=== PATIENT | male | born 1975 | race Caucasian/White ===

== ENCOUNTER 2016-12-28 10:31 | Emergency (ER) | payer BC ==
[~2016-12-28] VITALS: Ht 180.3 cm; Wt 120.4 kg
[2016-12-28 12:13] LABS: HEMATOCRIT 45.1 % (39.2-51.8); HEMOGLOBIN 15.4 g/dL (13.7-18.0); WHITE BLOOD COUNT 8.4 x10^3/uL (3.4-10)
[2016-12-28 12:25] LABS: BLOOD UREA NITROGEN 14 mg/dL (7-18)
[2016-12-28 12:30] LABS: ASPARTATE AMINO TRANSFERASE 41 U/L (15-37)
[2016-12-28 12:31] LABS: IS PT STATUS REG ER OR PRE ER? YES
[2016-12-28 13:15] VITALS: BP 134/90
== END 2016-12-28 14:00 | disposition home or self-care (01) ==
LOC: ED 11:16
DX: F41.9 Anxiety disorder, unspecified (principal); R06.4 Hyperventilation; I10 Essential (primary) hypertension
CPT/HCPCS: 36415; 71010; 80053; 84484; 85025; 93005; 99285

== ENCOUNTER 2017-01-07 14:33 | Emergency (ER) | payer BC ==
[~2017-01-07] VITALS: Ht 180.3 cm; Wt 121.8 kg
[2017-01-07] MEDS ORDERED: LORA1TAB PO (15:09)
[2017-01-07] MEDS ORDERED: SERT50TA5 PO (15:09)
[2017-01-07] MEDS ORDERED: METO-93 PO (15:09)
[2017-01-07 15:33] LABS: HEMATOCRIT 47.6 % (39.2-51.8); HEMOGLOBIN 16.4 g/dL (13.7-18.0); WHITE BLOOD COUNT 8.9 x10^3/uL (3.4-10)
[2017-01-07 15:40] LABS: BLOOD UREA NITROGEN 16 mg/dL (7-18)
[2017-01-07 15:45] LABS: IS PT STATUS REG ER OR PRE ER? YES
[2017-01-07 16:32] VITALS: BP 127/84
== END 2017-01-07 16:34 | disposition home or self-care (01) ==
LOC: ED 15:35
DX: F41.1 Generalized anxiety disorder (principal); R06.4 Hyperventilation; R07.89 Other chest pain; I10 Essential (primary) hypertension; Z87.891 Personal history of nicotine dependence
CPT/HCPCS: 36415; 71010; 80048; 82040; 84484; 85025; 93005; 99285

== ENCOUNTER 2017-01-12 17:56 | Emergency (ER) | payer BC ==
[~2017-01-12] VITALS: Ht 180.3 cm; Wt 118.6 kg
[~2017-01-12 17:56] MED LIST: LORA1TAB PO; METO-93 PO; SERT50TA5 PO
[2017-01-12 17:59] VITALS: BP 152/83
== END 2017-01-12 19:04 | disposition home or self-care (01) ==
LOC: ED 18:51
DX: S20.362A Insect bite (nonvenomous) of left front wall of thorax, initial encounter (principal); W57.XXXA Bitten or stung by nonvenomous insect and other nonvenomous arthropods, initial encounter; Y93.89 Activity, other specified; Y92.89 Other specified places as the place of occurrence of the external cause; Y99.8 Other external cause status; I10 Essential (primary) hypertension
CPT/HCPCS: 99283

== ENCOUNTER 2017-01-20 21:58 | Emergency (ER) | payer BC, OTHER ==
[~2017-01-20] VITALS: Ht 180.3 cm; Wt 118.3 kg
[2017-01-20 23:58] LABS: HEMATOCRIT 45.2 % (39.2-51.8); HEMOGLOBIN 15.5 g/dL (13.7-18.0); WHITE BLOOD COUNT 8.1 x10^3/uL (3.4-10)
[2017-01-21 00:01] LABS: BLOOD UREA NITROGEN 26 mg/dL (7-18)
[2017-01-21 00:04] LABS: ASPARTATE AMINO TRANSFERASE 53 U/L (15-37)
[2017-01-21 02:49] VITALS: BP 119/82
== END 2017-01-21 02:51 | disposition home or self-care (01) ==
LOC: ED 23:57
DX: R10.12 Left upper quadrant pain (principal); I10 Essential (primary) hypertension
CPT/HCPCS: 36415; 76700; 80053; 81001; 83690; 85025; 93005; 99285

== ENCOUNTER 2017-01-31 19:51 | Emergency (ER) | payer SELFPAY ==
[~2017-01-31] VITALS: Ht 180.3 cm; Wt 117.7 kg
[2017-01-31 20:08] VITALS: BP 154/75
== END 2017-01-31 20:58 | disposition home or self-care (01) ==
LOC: ED 20:52
DX: M54.6 Pain in thoracic spine (principal); F41.1 Generalized anxiety disorder; I10 Essential (primary) hypertension
CPT/HCPCS: 72072; 93005; 99284

== ENCOUNTER 2017-03-21 09:09 | Emergency (ER) | payer SELFPAY ==
[~2017-03-21] VITALS: Ht 180.3 cm; Wt 114.2 kg
[2017-03-21 09:50] VITALS: BP 125/79
== END 2017-03-21 09:52 | disposition home or self-care (01) ==
LOC: ED 09:40
DX: F41.1 Generalized anxiety disorder (principal); I10 Essential (primary) hypertension
CPT/HCPCS: 93005; 99283

== ENCOUNTER 2017-04-29 04:38 | Emergency (ER) | payer SELFPAY ==
[~2017-04-29] VITALS: Ht 180.3 cm; Wt 113.0 kg
[2017-04-29 04:41] VITALS: BP 124/86
== END 2017-04-29 06:03 | disposition home or self-care (01) ==
LOC: ED 05:26
DX: R06.00 Dyspnea, unspecified (principal); I10 Essential (primary) hypertension; G47.33 Obstructive sleep apnea (adult) (pediatric)
CPT/HCPCS: 71045; 93005; 99284

== ENCOUNTER 2017-12-19 17:40 | Emergency (ER) | payer OTHER ==
[~2017-12-19] VITALS: Ht 180.3 cm; Wt 119.7 kg
[2017-12-19] MEDS ORDERED: ASPIRIN 81 MG TABLET CHEW PO ONE (18:00)
[2017-12-19] MEDS ORDERED: ASPIRIN 81 MG TABLET CHEW ONE (18:02)
[2017-12-19] MEDS ORDERED: NAPR220C2 PO (18:14)
[2017-12-19] MEDS ORDERED: MECL25TA4 PO (18:15)
[2017-12-19 18:21] LABS: BASOPHILS # (AUTO) 0.05 x10^3/uL (0-0.1); BASOPHILS % (AUTO) 1 % (0-1); EOSINOPHILS # (AUTO) 0.17 x10^3/uL (0-0.4); EOSINOPHILS % (AUTO) 2 % (1-7); LYMPHOCYTES # (AUTO) 2.43 x10^3/uL (1-3.4); LYMPHOCYTES % (AUTO) 29 % (22-44); MD NO; MEAN CORPUSCULAR HEMOGLOBIN 30.6 pg (27.5-34.5); MEAN CORPUSCULAR HGB CONC 34.1 g/dL (33.2-36.2); MEAN CORPUSCULAR VOLUME 89.6 fL (81-97); MEAN PLATELET VOLUME 8.7 fL (7.4-10.4); MONOCYTES # (AUTO) 0.64 x10^3/uL (0.2-0.8); MONOCYTES % (AUTO) 8 % (2-9); NEUTROPHILS # (AUTO) 5.14 x10^3/uL (1.8-6.8); NEUTROPHILS % (AUTO) 61 % (42-75); PLATELET COUNT 244 x10^3/uL (130-400); RED BLOOD COUNT 5.19 x10^6/uL (4.38-5.82); RED CELL DISTRIBUTION WIDTH 13.2 % (9.4-14.8)
[2017-12-19 18:35] LABS: ALANINE AMINOTRANSFERASE 118 U/L (12-78); ALBUMIN 3.9 g/dL (3.4-5.0); ANION GAP 6 mmol/L (5-15); CALCIUM 9.2 mg/dL (8.5-10.1); CHLORIDE 107 mmol/L (98-107); CREATININE 1.19 mg/dL (0.7-1.3)
[2017-12-19 18:39] LABS: ALKALINE PHOSPHATASE 71 U/L (45-117); BILIRUBIN,TOTAL 0.7 mg/dL (0.2-1.0); TOTAL PROTEIN 7.9 g/dL (6.4-8.2); TROPONIN I < 0.015 ng/mL (0.000-0.045)
[2017-12-19 18:40] LABS: MICROSCOPIC NOT IND
[2017-12-19 20:23] VITALS: BP 131/75
== END 2017-12-19 20:38 | disposition home or self-care (01) ==
LOC: ED 19:08
DX: K43.9 Ventral hernia without obstruction or gangrene (principal); I10 Essential (primary) hypertension; M54.9 Dorsalgia, unspecified; R07.9 Chest pain, unspecified; Z91.14 Patient's other noncompliance with medication regimen
CPT/HCPCS: 36415; 71045; 74176; 80053; 81003; 83690; 84484; 85025; 93005; 99285

== ENCOUNTER 2018-06-21 21:44 | Emergency (ER) | payer SELFPAY ==
[~2018-06-21] VITALS: Ht 180.3 cm; Wt 123.7 kg
[~2018-06-21 21:44] MED LIST changes: +MECL25TA4 PO; +NAPR220C2 PO; +SERT50TA28 PO; -SERT50TA5 PO
[2018-06-21 21:53] VITALS: BP 144/98
--- NOTE | 2018-06-21 23:24 | NUR ---
NOT IN LOBBY FOR VITAL RECHECK
--- NOTE | 2018-06-22 00:09 | NUR ---
NO ANSWER TIMES 2
--- NOTE | 2018-06-22 00:29 | NUR ---
NO ANSWER WHEN CALLED, THIRD TIME, LOBBY CHECKED, PT NOT FOUND
== END 2018-06-22 00:32 | disposition left against medical advice (07) ==
LOC: ED 06-22 00:26
DX: R51 Headache (principal); Z53.21 Procedure and treatment not carried out due to patient leaving prior to being seen by health care provider

== ENCOUNTER 2018-10-27 12:51 | Emergency (ER) | payer BC ==
[~2018-10-27] VITALS: Ht 180.3 cm; Wt 124.3 kg
--- NOTE | 2018-10-27 12:55 | NUR ---
NO ANSWER FROM TRIAGE AT THIS TIME
[2018-10-27 13:39] LABS: BASOPHILS # (AUTO) 0.05 x10^3/uL (0-0.1); BASOPHILS % (AUTO) 1 % (0-1); EOSINOPHILS # (AUTO) 0.19 x10^3/uL (0-0.4); EOSINOPHILS % (AUTO) 2 % (1-7); LYMPHOCYTES # (AUTO) 1.54 x10^3/uL (1-3.4); LYMPHOCYTES % (AUTO) 19 % (22-44); MD NO; MEAN CORPUSCULAR HEMOGLOBIN 29.9 pg (27.5-34.5); MEAN CORPUSCULAR HGB CONC 33.3 g/dL (33.2-36.2); MEAN CORPUSCULAR VOLUME 89.9 fL (81-97); MEAN PLATELET VOLUME 8.3 fL (7.4-10.4); MONOCYTES # (AUTO) 0.63 x10^3/uL (0.2-0.8); MONOCYTES % (AUTO) 8 % (2-9); NEUTROPHILS # (AUTO) 5.78 x10^3/uL (1.8-6.8); NEUTROPHILS % (AUTO) 71 % (42-75); PLATELET COUNT 257 x10^3/uL (130-400); RED BLOOD COUNT 5.18 x10^6/uL (4.38-5.82); RED CELL DISTRIBUTION WIDTH 13.4 % (9.4-14.8)
[2018-10-27 13:49] LABS: ALBUMIN 3.7 g/dL (3.4-5.0); ANION GAP 6 mmol/L (5-15); CALCIUM 8.8 mg/dL (8.5-10.1); CHLORIDE 112 mmol/L (98-107); CREATININE 1.19 mg/dL (0.7-1.3)
--- NOTE | 2018-10-27 13:58 | NUR ---
FROM LOBBY TO ROOM AT THIS TIME
--- NOTE | 2018-10-27 14:00 | NUR ---
Pt ambulated to room from lobby with steady gait and balance. NADN. No obvious defecits observed. Pt states, "I have been having this on and off numbness and tingling on my face (left side of nose and left cheek) for 2 to 3 months. It causes me a lot of anxiety. Today it was more persistent. [place] get out of the sun, drink water, and calm myself down. I figured I would come down and be seen." Pt denies cp, sob, syncope, n/v/d, trauma, loss of CMS in extremities, difficulty with speech, or difficulty with ambulation. Pt provided gown to change into. Call light within reach.
[2018-10-27 14:15] VITALS: BP 119/73
--- NOTE | 2018-10-27 14:16 | NUR ---
EDMD IN TO [facility]. NAD
== END 2018-10-27 15:04 | disposition home or self-care (01) ==
LOC: ED 14:04
DX: G51.9 Disorder of facial nerve, unspecified (principal); I10 Essential (primary) hypertension; F41.1 Generalized anxiety disorder
CPT/HCPCS: 36415; 80048; 82040; 85025; 93005; 99284

== ENCOUNTER 2019-05-03 04:54 | Emergency (ER) | payer BC ==
[~2019-05-03] VITALS: Ht 180.3 cm; Wt 121.1 kg
[2019-05-03] MEDS ORDERED: LISI-167 PO (05:15)
--- NOTE | 2019-05-03 05:16 | NUR ---
GENTLEMAN HERE NOTING HE BECAME CONGESTED THIS MORNING CAUSING SOB, USED AFRIN WITH RELIEF, NOTES SOME DIZZINESS WELL, HE TOOK DRAMAMINE FOR THIS, HAS HX OF VERTIGO WITH HAVING BEEN RX'D MECLIZINE IN THE PAST. MILDLY ANXIOUS, 12 LEAD IN TRIAGE NSR, PLACED ON MONITOR IN ROOM, ALSO NSR MONITOR WITHOUT ECTOPY.
[2019-05-03] MEDS ORDERED: MAALOX/HYOSCYAMINE/LIDOCAINE 45 ML BTL ONE (05:38)
--- NOTE | 2019-05-03 05:42 | NUR ---
PT MEDICATED WITH GI COCTAIL AND UPDATED ON PLAN OF CARE. PT C/O RETURNING NASAL CONGESTION, OTHERWISE DENIES ADDITIONAL NEEDS AT THIS TIME.
--- NOTE | 2019-05-03 05:50 | NUR ---
PT TO ULTRASOUND.
--- NOTE | 2019-05-03 05:54 | NUR ---
PT NOT IN ROOM FOR REPEAT EKG. WILL TRY AGAIN.
[2019-05-03] MEDS ORDERED: MAALOX/HYOSCYAMINE/LIDOCAINE 45 ML BTL PO ONE (06:00)
[2019-05-03 06:19] LABS: BASOPHILS # (AUTO) 0.05 x10^3/uL (0-0.1); BASOPHILS % (AUTO) 1 % (0-1); EOSINOPHILS # (AUTO) 0.14 x10^3/uL (0-0.4); EOSINOPHILS % (AUTO) 2 % (1-7); LYMPHOCYTES # (AUTO) 1.84 x10^3/uL (1-3.4); LYMPHOCYTES % (AUTO) 23 % (22-44); MD NO; MEAN CORPUSCULAR HEMOGLOBIN 30.5 pg (27.5-34.5); MEAN CORPUSCULAR HGB CONC 33.5 g/dL (33.2-36.2); MEAN CORPUSCULAR VOLUME 90.9 fL (81-97); MEAN PLATELET VOLUME 8.3 fL (7.4-10.4); MONOCYTES # (AUTO) 0.72 x10^3/uL (0.2-0.8); MONOCYTES % (AUTO) 9 % (2-9); NEUTROPHILS # (AUTO) 5.33 x10^3/uL (1.8-6.8); NEUTROPHILS % (AUTO) 66 % (42-75); PLATELET COUNT 232 x10^3/uL (130-400); RED BLOOD COUNT 4.99 x10^6/uL (4.38-5.82); RED CELL DISTRIBUTION WIDTH 13.1 % (9.4-14.8)
[2019-05-03 06:31] LABS: ALANINE AMINOTRANSFERASE 86 U/L (12-78); ALBUMIN 3.6 g/dL (3.4-5.0); ANION GAP 8 mmol/L (5-15); CALCIUM 8.3 mg/dL (8.5-10.1); CHLORIDE 106 mmol/L (98-107)
[2019-05-03 06:36] LABS: ALKALINE PHOSPHATASE 67 U/L (45-117); BILIRUBIN,TOTAL 0.8 mg/dL (0.2-1.0); TOTAL PROTEIN 7.2 g/dL (6.4-8.2); TROPONIN I < 0.015 ng/mL (0.000-0.045)
--- NOTE | 2019-05-03 06:41 | NUR ---
PT SLEEPING, OXYGEN 2L PLACED VIA NC TO PREVENT DESATS WIH SLEEP APNEA. PT AWAITING RESULTS.
--- NOTE | 2019-05-03 07:00 | NUR ---
RECEIVED REPORT FROM JESSIE AND ASSUMED CARE. PT AWAITING DISPO, NO DISTRESS. STATES HIS EPIGASTRIC PAIN IMPROVED WITH GI COCKTAIL BUT CONTINUES TO HAVE ABDOMINAL PAIN, INDICATING THE LEFT SIDE
[2019-05-03 07:11] VITALS: BP 112/64
== END 2019-05-03 08:02 | disposition home or self-care (01) ==
LOC: ED 05:34
DX: R10.12 Left upper quadrant pain (principal); R51 Headache; R11.0 Nausea
CPT/HCPCS: 36415; 71045; 76700; 80053; 80307; 83690; 84443; 84484; 85025; 93005; 99284

== ENCOUNTER 2019-05-15 07:37 | Emergency (ER) | payer BC ==
[~2019-05-15] VITALS: Ht 180.3 cm; Wt 121.0 kg
[~2019-05-15 07:37] MED LIST changes: +LISI-167 PO
[2019-05-15 07:45] VITALS: BP 128/75
--- NOTE | 2019-05-15 09:09 | NUR ---
Not in Lobby [phone]
--- NOTE | 2019-05-15 09:39 | NUR ---
not in lobby [phone]
--- NOTE | 2019-05-15 09:43 | NUR ---
NIL X [phone]
== END 2019-05-15 09:44 | disposition left against medical advice (07) ==
LOC: ED 09:38
DX: R42 Dizziness and giddiness (principal); Z53.21 Procedure and treatment not carried out due to patient leaving prior to being seen by health care provider

== ENCOUNTER 2020-06-13 00:31 | Emergency (ER) | payer BC ==
[~2020-06-13] VITALS: Ht 180.3 cm; Wt 123.0 kg
[~2020-06-13 00:31] MED LIST changes: +MECL-101 PO; -MECL25TA4 PO
[2020-06-13] MEDS ORDERED: MECLIZINE CHEWABLE 25 MG TAB PO ONE (01:00)
[2020-06-13] MEDS ORDERED: MECLIZINE CHEWABLE 25 MG TAB ONE (01:01)
--- NOTE | 2020-06-13 01:09 | NUR ---
Covering primary nurse for break. Pt awake, alert and oriented. On monitor, vss. Medicated per order. Lab here drawing blood. Will continue to monitor. AIDET provided.
[2020-06-13 01:17] LABS: BASOPHILS % (AUTO) 1 % (0-1); EOSINOPHILS % (AUTO) 1 % (1-7); LYMPHOCYTES % (AUTO) 15 % (22-44); MEAN CORPUSCULAR HEMOGLOBIN 30.2 pg (27.5-34.5); MEAN CORPUSCULAR HGB CONC 33.8 g/dL (33.2-36.2); MEAN PLATELET VOLUME 8.4 fL (7.4-10.4); MONOCYTES % (AUTO) 8 % (2-9); NEUTROPHILS % (AUTO) 75 % (42-75); PLATELET COUNT 222 x10^3/uL (130-400); RED BLOOD COUNT 5.03 x10^6/uL (4.38-5.82); RED CELL DISTRIBUTION WIDTH 13.1 % (9.4-14.8)
[2020-06-13 01:18] LABS: MD NO
--- NOTE | 2020-06-13 01:22 | NUR ---
Pt up and ambulates to the bathroom. Pt states dizziness is a little better but when he changes positions feels dizzy. Pt drove here states driving wasn't a problem.
[2020-06-13 01:24] LABS: ALBUMIN 3.7 g/dL (3.4-5.0); ANION GAP 6 mmol/L (5-15); CALCIUM 8.2 mg/dL (8.5-10.1); CHLORIDE 108 mmol/L (98-107); CREATININE 0.97 mg/dL (0.7-1.3)
--- NOTE | 2020-06-13 02:26 | NUR ---
Pt states feeling better after medications. Pt continues to have some vertigo when turning head. Pt dc'd with written and verbal instructions. RX and instructions reviewed. Pt states understanding. Pt instructed not to drive. Pt states he will take a taxi home. Pt ambulatory out of ED without difficulty.
[2020-06-13 02:32] VITALS: BP 126/79
== END 2020-06-13 02:32 | disposition home or self-care (01) ==
LOC: ED 00:59
DX: R42 Dizziness and giddiness (principal); R94.31 Abnormal electrocardiogram [ECG] [EKG]; I10 Essential (primary) hypertension
CPT/HCPCS: 36415; 80048; 82040; 85025; 93005; 99284

== ENCOUNTER 2020-06-23 05:32 | Emergency (ER) | payer BC ==
[~2020-06-23] VITALS: Ht 180.3 cm; Wt 126.4 kg
--- NOTE | 2020-06-23 05:48 | NUR ---
THIS IS A 45Y M THAT COMES IN FOR CP WHILE STRETCHING PT STS IT RADIATES TO HIS LOWER CHIN AND HAS A TINGLING SENSATION. DENIES N/V/D, STS HE FEELS BETTER WHEN HE IS NOT STRETCHING. DENIES NEEDS AT THIS TIME, STS JUST WANTS TO GET LOOKED AT HX OF NEURALGIA ANXIETY HTN AND VERTIGO. PT CONNECTED TO ALL MONITORING VSS, NADN ERP AT BEDSIDE. REPORT TO NOEL OCAMPO
[2020-06-23] MEDS ORDERED: NITROGLYCERIN SINGLE TAB 0.4 MG SL ONE (05:53)
[2020-06-23] MEDS ORDERED: ASPIRIN 81 MG TABLET CHEW ONE (05:53)
[2020-06-23] MEDS: NITROGLYCERIN SINGLE TAB 0.4 MG SL PRN ×2 (05:58→06:05)
[2020-06-23] MEDS ORDERED: SODIUM CHLORIDE FLUSH 10ML SYR IVF ONE (06:00)
[2020-06-23] MEDS ORDERED: ASPIRIN 81 MG TABLET CHEW PO ONE (06:00)
[2020-06-23 06:06] LABS: BASOPHILS % (AUTO) 1 % (0-1); EOSINOPHILS % (AUTO) 2 % (1-7); LYMPHOCYTES % (AUTO) 22 % (22-44); MEAN CORPUSCULAR HEMOGLOBIN 30.5 pg (27.5-34.5); MEAN CORPUSCULAR HGB CONC 34.3 g/dL (33.2-36.2); MEAN PLATELET VOLUME 8.7 fL (7.4-10.4); MONOCYTES % (AUTO) 10 % (2-9); NEUTROPHILS % (AUTO) 65 % (42-75); PLATELET COUNT 209 x10^3/uL (130-400); RED BLOOD COUNT 5.03 x10^6/uL (4.38-5.82); RED CELL DISTRIBUTION WIDTH 12.9 % (9.4-14.8)
--- NOTE | 2020-06-23 06:06 | NUR ---
SL NTG X 2 GIVEN. CXR COMPLETE PT STATES PAIN DOWN TO 4/10 FROM 6/10 WHEN HE ARRIVED. BP STABLE
[2020-06-23 06:09] LABS: MD NO
[2020-06-23 06:20] LABS: ALBUMIN 3.7 g/dL (3.4-5.0); ANION GAP 8 mmol/L (5-15); CALCIUM 8.7 mg/dL (8.5-10.1); CHLORIDE 109 mmol/L (98-107); CREATININE 0.81 mg/dL (0.7-1.3)
[2020-06-23 06:24] LABS: TROPONIN I < 0.015 ng/mL (0.000-0.045)
--- NOTE | 2020-06-23 06:29 | NUR ---
Pt to BR indep. States pain now 2/10. Stable VS. No ectopy on monitor. Pt calm in room Will monitor.
--- NOTE | 2020-06-23 06:48 | NUR ---
REPORT FROM NOEL. PT CALMLY LAYING ON GURNEY. STATED HE IS TIRED AND PAIN DOWN TO A 1. NO NEEDS AT THIS TIME. CALL LIGHT WITHIN REACH.
[2020-06-23] MEDS ORDERED: KETOROLAC 30 MG/1 ML ONE (07:09)
[2020-06-23] MEDS ORDERED: KETOROLAC 30 MG/1 ML IVPush ONE (07:30)
[2020-06-23 08:15] LABS: TROPONIN I < 0.015 ng/mL (0.000-0.045)
[2020-06-23 08:50] VITALS: BP 110/70
--- NOTE | 2020-06-23 09:01 | NUR ---
Patient given discharge instructions and they have confirmed that they understand the instructions. Patient ambulatory with steady gait.
== END 2020-06-23 09:03 | disposition home or self-care (01) ==
LOC: ED 06:27
DX: R07.89 Other chest pain (principal); R06.02 Shortness of breath; R11.0 Nausea; R42 Dizziness and giddiness; I10 Essential (primary) hypertension; R94.31 Abnormal electrocardiogram [ECG] [EKG]
CPT/HCPCS: 36415; 71045; 80048; 82040; 84484; 85025; 93005; 96374; 99285; J1885; 99284

== ENCOUNTER 2020-10-30 03:48 | Emergency (ER) | payer BC ==
[~2020-10-30] VITALS: Ht 180.3 cm; Wt 125.0 kg
[2020-10-30 03:54] VITALS: BP 135/78
--- NOTE | 2020-10-30 04:13 | NUR ---
PT TO CT.
--- NOTE | 2020-10-30 05:07 | NUR ---
REPORT TO MARIAM OCAMPO.
== END 2020-10-30 05:45 | disposition home or self-care (01) ==
LOC: ED 05:20
DX: S76.011A Strain of muscle, fascia and tendon of right hip, initial encounter (principal); N20.2 Calculus of kidney with calculus of ureter; R10.31 Right lower quadrant pain; I10 Essential (primary) hypertension; X58.XXXA Exposure to other specified factors, initial encounter; Y93.89 Activity, other specified; Y92.89 Other specified places as the place of occurrence of the external cause; Y99.8 Other external cause status
CPT/HCPCS: 74176; 99284